=== PATIENT | female | born 1995 | race Asian ===

== ENCOUNTER 2016-09-16 12:11 | Emergency (ER) | payer OTHER ==
[2016-09-16] MEDS ORDERED: Ketorolac INJ* 60 MG/2 ML VIAL IM ONE (13:45)
[2016-09-16] MEDS ORDERED: Cyclobenzaprine TAB* 10 MG PO ONE ×2 (13:45→14:00)
--- NOTE | 2016-09-16 13:47 | ED ---
Back Pain - HPI Summary HPI Summary: 20F w/ PMH of herniated disk states that yesterday cough and increased pain. She states she has some tingling into her right leg. She states that the pain started after she started coughing. She denies any recent trauma. She states she had an MRI many years ago and was diagnosed with a herniated disk at L4-L5. She states the pain is not midline and is located on the right side of her lower back which i where she normally has pain but it is never this extreme. She denies any loss of bowel or bladder or saddle anaesthesia. - History of Current Complaint Chief Complaint: EDBackInjuryPain Stated Complaint: BACK PAIN Time Seen by Provider: 09/16/16 13:31 Pain Intensity: 6 - Allergies/Home Medications Allergies/Adverse Reactions: Allergies Allergy/AdvReac Type Severity Reaction Status Date / Time No Known Allergies Allergy Verified 09/16/16 14:04 PMH/Surg Hx/FS Hx/Imm Hx Endocrine/Hematology History: Denies: Hx Anticoagulant Therapy Musculoskeletal History: Reports: Hx Back Problems Infectious Disease History: No Infectious Disease History: Denies: Traveled Outside the [place] in Last 30 Days - Family History Known Family History: Negative: Cardiac Disease - Social History Alcohol Use: Occasionally Substance Use Type: Reports: None Smoking Status (MU): Never Smoked Tobacco Review of Systems Negative: Fever Negative: Chest Pain Negative: Shortness Of Breath Positive: Myalgia - back pain All Other Systems Reviewed And Are Negative: Yes Physical Exam Triage Information Reviewed: Yes Vital Signs On Initial Exam: Initial Vitals Temp Pulse Resp BP Pulse Ox 98.1 F 81 14 103/67 98 09/16/16 12:12 09/16/16 12:12 09/16/16 12:12 09/16/16 12:12 09/16/16 12:12 Vital Signs Reviewed: Yes Appearance: Positive: Well-Appearing Skin: Positive: Warm, Dry Head/Face: Positive: Normal Head/Face Inspection Eyes: Positive: Normal, Conjunctiva Clear Respiratory/Lung Sounds: Positive: Clear to Auscultation, Breath Sounds Present Cardiovascular: Positive: Normal, RRR Musculoskeletal: Positive: Limited @ - back due to pain, Other - no midline tenderness on palpation, neg SLR, tender to palpation of right side of lower back Diagnostics - Vital Signs Vital Signs Temp Pulse Resp BP Pulse Ox 09/16/16 13:30 98.5 F 79 16 104/56 100 09/16/16 12:12 98.1 F 81 14 103/67 98 - Laboratory Lab Statement: Any lab studies that have been ordered have been reviewed, and results considered in the medical decision making process. Back Pain Course/Dx - Course Course Of Treatment: 20F presents with right sided lower back pain yesterday. She denies any trauma. She states she has a herniated disk at L4-L5. She has no midline tenderness on exam and neg SLR. discussed imaging options and patient requesting CT but discussed pros vs cons due to radiation and pain not midline and no trauma so discussed do not see benefit of CT, offered xray but patient declined. will treat with short course of muscle relaxers. patient understands and agrees with plan - Diagnoses Differential Diagnosis/HQI/PQRI: Positive: Herniated Disc, Strain, Sprain Provider Diagnoses: Back pain Discharge - Discharge Plan Condition: Good Disposition: HOME Prescriptions: Cyclobenzaprine TAB* [Flexeril 10 MG TAB*] 10 mg PO TID PRN #6 tab PRN Reason: Pain Patient Education Materials: Back Pain (ED) Referrals: [facility] ZULEYMA Machuca [Primary Care Provider] - Additional Instructions: Take muscle relaxers three times a day for 3 days, first dose given in ED Use ibuprofen or Tylenol for pain every 6 hours ice/heat area, move as much as possible Follow up with Zuleyma within 5 days Return to ED if unable to ambulate or develop any new or worsening symptoms
[2016-09-16 15:00] VITALS: BP 108/65
== END 2016-09-16 14:59 | disposition home or self-care (01) ==
LOC: ED 12:11
DX: M54.9 Dorsalgia, unspecified (principal)
CPT/HCPCS: 96372; 99282; A9270-GY; J1885